=== PATIENT | female | born 1950 | race Caucasian/White ===

== ENCOUNTER → 2016-12-12 | Outpatient (CLI) | payer MEDICARE ==
[~2016-12-12] MED LIST: LEVOFLOXACIN500 MG PO; VIBRAMYCIN100 MG PO
[2016-12-12 08:28] LABS: BASO # 0.1 10*3/uL (0.0-0.1); EOS # 0.4 10*3/uL (0.0-0.4); EOS % 3.8 % (1.0-4.0); HEMATOCRIT 40.7 % (37.0-47.0); HEMOGLOBIN 13.3 g/dl (12.0-16.0); LYMPH # 2.3 10*3/uL (1.3-4.4); LYMPH % 23.9 % (27.0-41.0); MEAN CELL VOLUME 88.7 fl (81.0-99.0); MEAN CORPUSCULAR HGB CONC 32.7 g/dl (33.0-37.0); MEAN PLATELET VOLUME 8.9 fl (9.6-12.3); MONO # 0.5 10*3/uL (0.1-1.0); MONO % 5.4 % (3.0-9.0); NEUT # 6.3 10*3/uL (2.3-7.9); NEUT % 65.6 % (47.0-73.0); PLATELET COUNT AUTOMATED 290 10*3/uL (130-400); RED BLOOD COUNT 4.59 10*6/uL (4.10-5.10); WHITE BLOOD COUNT 9.6 10*3/uL (4.8-10.8)
[2016-12-12 08:49] LABS: HEMOGLOBIN A1c 6.6 % (4.8-5.6)
[2016-12-12 08:56] LABS: ALBUMIN 3.6 gm/dl (3.1-4.5); ALKALINE PHOSPHATASE 74 U/L (45-117); BILIRUBIN, TOTAL 0.4 mg/dl (0.2-1.0); BUN 17 mg/dl (7-24); CARBON DIOXIDE 30 mmol/L (21-32); CHLORIDE 104 mmol/L (98-107); CHOLESTEROL 146 mg/dL (<200); EST GLOM FILT AFRICAN AMERICAN > 60 ml/min; GLUCOSE 101 mg/dL (65-99); HDL CHOLESTEROL 48 mg/dl (40-60); LDL CHOLESTEROL 73 mg/dL (9-159); POTASSIUM 3.7 mmol/L (3.5-5.1); SGOT/AST 15 IU/L (3-35); SGPT/ALT 15 U/L (12-78); SODIUM 137 mmol/L (136-145); TOTAL PROTEIN 7.7 gm/dL (6.4-8.2); TRIGLYCERIDES 124 mg/dl (<150); VLDL CHOLESTEROL 25 mg/dL (6-40)
== END | disposition home or self-care (01) ==
LOC: LAB 07:59
PROVIDERS: Internal Medicine
DX: E03.9 Hypothyroidism, unspecified (principal); I10 Essential (primary) hypertension; E11.65 Type 2 diabetes mellitus with hyperglycemia; E53.8 Deficiency of other specified B group vitamins; Z68.33 Body mass index [BMI] 33.0-33.9, adult

== ENCOUNTER 2017-12-04 19:18 | Emergency (ER) | payer MEDICARE ==
[~2017-12-04] VITALS: Ht 157.4 cm; Wt 72.6 kg
[2017-12-04 20:01] LABS: BILIRUBIN NEGATIVE (NEGATIVE); BLOOD 2+ (NEGATIVE); CLARITY CLEAR (CLEAR); COLOR YELLOW (YELLOW); GLUCOSE NEGATIVE (NEGATIVE); KETONE TRACE (NEGATIVE); LEUKO ESTERASE 1+ (NEGATIVE); NITRITE NEGATIVE (NEGATIVE); UROBILINOGEN 0.2 E.U./dl (0.2-1.0)
[2017-12-04 20:06] LABS: BASO # 0.1 10*3/uL (0.0-0.1); BASO % 0.4 % (0.0-1.0); EOS # 0.1 10*3/uL (0.0-0.4); EOS % 0.7 % (1.0-4.0); HEMATOCRIT 42.2 % (37.0-47.0); HEMOGLOBIN 14.2 g/dl (12.0-16.0); LYMPH # 2.1 10*3/uL (1.3-4.4); LYMPH % 12.7 % (27.0-41.0); MEAN CELL VOLUME 87.7 fl (81.0-99.0); MEAN CORPUSCULAR HGB 29.5 pg (27.0-31.0); MEAN CORPUSCULAR HGB CONC 33.6 g/dl (33.0-37.0); MEAN PLATELET VOLUME 8.9 fl (9.6-12.3); MONO # 1.2 10*3/uL (0.1-1.0); MONO % 7.3 % (3.0-9.0); NEUT # 12.8 10*3/uL (2.3-7.9); NEUT % 78.5 % (47.0-73.0); PLATELET COUNT AUTOMATED 291 10*3/uL (130-400); RED BLOOD COUNT 4.81 10*6/uL (4.10-5.10); RED CELL DISTRI WIDTH 13.6 % (0-14.5); WHITE BLOOD COUNT 16.3 10*3/uL (4.8-10.8)
[2017-12-04 20:09] LABS: BACTERIA 2+
[2017-12-04 20:21] LABS: ALBUMIN 3.7 gm/dl (3.1-4.5); CREATININE 1.71 mg/dL (0.55-1.02); POTASSIUM 3.5 mmol/L (3.5-5.1)
[2017-12-04] MEDS ORDERED: SEPTDS PO (22:04)
[2017-12-04] MEDS ORDERED: NORCO 5-325 TA1 EACH PO (22:04)
[2017-12-04] MEDS ORDERED: Zofran4 MG SL (22:04)
== END 2017-12-04 22:01 | disposition home or self-care (01) ==
LOC: ED 19:18
PROVIDERS: Student in an Organized Health Care Education/Training Program
DX: N20.0 Calculus of kidney (principal); N39.0 Urinary tract infection, site not specified; G89.29 Other chronic pain; M54.9 Dorsalgia, unspecified; Z90.49 Acquired absence of other specified parts of digestive tract; Z85.9 Personal history of malignant neoplasm, unspecified

== ENCOUNTER → 2018-01-09 | Outpatient (CLI) | payer MEDICARE ==
[~2018-01-09] MED LIST changes: +NORCO 5-325 TA1 EACH PO; +SEPTDS PO; +Zofran4 MG SL
[2018-01-09 11:11] LABS: BILIRUBIN NEGATIVE (NEGATIVE); BLOOD 2+ (NEGATIVE); CLARITY CLOUDY (CLEAR); COLOR YELLOW (YELLOW); GLUCOSE NEGATIVE (NEGATIVE); KETONE TRACE (NEGATIVE); LEUKO ESTERASE 1+ (NEGATIVE); NITRITE NEGATIVE (NEGATIVE); UROBILINOGEN 0.2 E.U./dl (0.2-1.0)
[2018-01-09 11:25] LABS: BACTERIA 3+; EPITHELIAL CELLS 25-30; RBC 16-20 rbc/hpf (0-2); WBC 31-40 wbc/hpf (0-5); YEAST 1+
== END | disposition home or self-care (01) ==
LOC: LAB 10:48
DX: N20.1 Calculus of ureter (principal); N18.2 Chronic kidney disease, stage 2 (mild); D68.8 Other specified coagulation defects

== ENCOUNTER → 2018-02-07 | Outpatient (CLI) | payer MEDICARE ==
[2018-02-07 11:50] LABS: BASO # 0.1 10*3/uL (0.0-0.1); BASO % 1.1 % (0.0-1.0); EOS # 0.2 10*3/uL (0.0-0.4); EOS % 3.2 % (1.0-4.0); HEMATOCRIT 38.3 % (37.0-47.0); HEMOGLOBIN 12.4 g/dl (12.0-16.0); LYMPH # 1.2 10*3/uL (1.3-4.4); LYMPH % 17.8 % (27.0-41.0); MEAN CELL VOLUME 90.3 fl (81.0-99.0); MEAN CORPUSCULAR HGB 29.2 pg (27.0-31.0); MEAN CORPUSCULAR HGB CONC 32.4 g/dl (33.0-37.0); MEAN PLATELET VOLUME 8.7 fl (9.6-12.3); MONO # 0.4 10*3/uL (0.1-1.0); MONO % 6.2 % (3.0-9.0); NEUT # 4.7 10*3/uL (2.3-7.9); NEUT % 71.4 % (47.0-73.0); PLATELET COUNT AUTOMATED 238 10*3/uL (130-400); RED BLOOD COUNT 4.24 10*6/uL (4.10-5.10); RED CELL DISTRI WIDTH 14.2 % (0-14.5); WHITE BLOOD COUNT 6.6 10*3/uL (4.8-10.8)
[2018-02-07 12:20] LABS: ALBUMIN 3.5 gm/dl (3.1-4.5); ALKALINE PHOSPHATASE 74 U/L (45-117); BUN 17 mg/dl (7-24); CHLORIDE 105 mmol/L (98-107); CHOLESTEROL 185 mg/dL (<200); CREATININE 0.93 mg/dL (0.55-1.02); HDL CHOLESTEROL 42 mg/dl (40-60); LDL CHOLESTEROL 101 mg/dL (9-159); POTASSIUM 3.6 mmol/L (3.5-5.1); SGOT/AST 14 IU/L (3-35); SGPT/ALT 13 U/L (12-78); SODIUM 141 mmol/L (136-145); TOTAL PROTEIN 7.4 gm/dL (6.4-8.2); TRIGLYCERIDES 209 mg/dl (<150); VLDL CHOLESTEROL 42 mg/dL (6-40)
== END ==
LOC: LAB 11:21
DX: E78.5 Hyperlipidemia, unspecified (principal); E11.9 Type 2 diabetes mellitus without complications; I10 Essential (primary) hypertension; E03.9 Hypothyroidism, unspecified; Z98.890 Other specified postprocedural states; Z96.0 Presence of urogenital implants

== ENCOUNTER → 2018-12-02 | Outpatient (CLI) | payer MEDICARE ==
[2018-12-02 10:05] LABS: ALBUMIN 3.5 gm/dl (3.1-4.5); ALKALINE PHOSPHATASE 83 U/L (45-117); BUN 17 mg/dl (7-24); CHLORIDE 104 mmol/L (98-107); CHOLESTEROL 208 mg/dL (<200); CREATININE 1.09 mg/dL (0.55-1.02); HDL CHOLESTEROL 47 mg/dl (40-60); LDL CHOLESTEROL 127 mg/dL (9-159); POTASSIUM 3.8 mmol/L (3.5-5.1); SGOT/AST 18 IU/L (3-35); SGPT/ALT 21 U/L (12-78); SODIUM 136 mmol/L (136-145); TOTAL PROTEIN 7.7 gm/dL (6.4-8.2); TRIGLYCERIDES 169 mg/dl (<150); VLDL CHOLESTEROL 34 mg/dL (6-40)
== END | disposition home or self-care (01) ==
LOC: LAB 09:18
PROVIDERS: Internal Medicine
DX: I12.9 Hypertensive chronic kidney disease with stage 1 through stage 4 chronic kidney disease, or unspecified chronic kidney disease (principal); N18.3 Chronic kidney disease, stage 3 (moderate); K21.0 Gastro-esophageal reflux disease with esophagitis; E78.5 Hyperlipidemia, unspecified; R73.03 Prediabetes

== ENCOUNTER 2022-08-01 13:25 | Emergency (ER) | payer MEDICARE ==
[~2022-08-01] VITALS: Ht 157.4 cm; Wt 74.8 kg
== END 2022-08-01 17:02 | disposition home or self-care (01) ==
LOC: ED 13:25
DX: S61.411A Laceration without foreign body of right hand, initial encounter (principal); S60.221A Contusion of right hand, initial encounter; W22.8XXA Striking against or struck by other objects, initial encounter; Y93.89 Activity, other specified; Y92.89 Other specified places as the place of occurrence of the external cause; Y99.8 Other external cause status